=== PATIENT | female | born 1940 | race Caucasian/White ===

== ENCOUNTER 2021-09-15 02:09 | Inpatient (IN) | payer MEDICARE, OTHER ==
[~2021-09-15] VITALS: Ht 160 cm; Wt 66.7 kg
[2021-09-15 02:45] LABS: HEMATOCRIT 37.1 % (31.2-41.9); MEAN CORPUSCULAR HEMOGLOBIN 29.1 uug (24.7-32.8); MEAN CORPUSCULAR VOLUME 85.1 fL (75.5-95.3); PLATELET COUNT (AUTO) 186 K/uL (179-408)
[2021-09-15 02:49] LABS: CARBON DIOXIDE 28 mmol/L (21-32); CHLORIDE 104 mmol/L (98-107); CREATININE 0.7 mg/dL (0.6-1.3); GLUCOSE 98 mg/dL (74-106); POTASSIUM 3.6 mmol/L (3.5-5.1); UREA NITROGEN, BLOOD 17 mg/dL (7-18)
[2021-09-15 03:00] LABS: ALANINE AMINOTRANSFERASE 29 U/L (14-59); ALKALINE PHOSPHATASE 90 U/L (50-136); ASPARTATE AMINOTRANSFERASE 27 U/L (15-37); BILIRUBIN,DIRECT 0.1 mg/dL (0.0-0.2); BILIRUBIN,TOTAL 0.3 mg/dL (0.2-1.0); CREATINE KINASE, TOTAL 398 U/L (26-192); TOTAL PROTEIN, SERUM 7.1 g/dL (6.4-8.2)
[2021-09-15 03:02] LABS: THYROID STIMULATING HORMONE 8.367 mIU/mL (0.358-3.740)
[2021-09-15 03:06] LABS: ACETAMINOPHEN < 2.0 ug/mL (10-30)
[2021-09-15 03:12] LABS: ETHANOL < 3 MG/DL (0-0)
[2021-09-15] MEDS ORDERED: HYDR-501 PO (03:19)
[2021-09-15] MEDS ORDERED: CRAN450T9 PO (03:19)
[2021-09-15] MEDS ORDERED: ACET-2154 PO (03:19)
[2021-09-15] MEDS ORDERED: AMIN30LI27 PO (03:19)
[2021-09-15] MEDS ORDERED: MAGN400O6 PO (03:19)
[2021-09-15] MEDS ORDERED: POLY17PO4 PO (03:19)
[2021-09-15] MEDS ORDERED: NAPR-1009 PO (03:19)
[2021-09-15] MEDS ORDERED: AMLO-212 PO (03:19)
[2021-09-15] MEDS ORDERED: MAG-55 PO (03:19)
[2021-09-15] MEDS ORDERED: BISA10SU61 RC (03:19)
[2021-09-15] MEDS ORDERED: DOCU250C14 PO (03:19)
[2021-09-15] MEDS ORDERED: NA P133E RC (03:19)
[2021-09-15] MEDS ORDERED: SIME120L MC (03:19)
[2021-09-15] MEDS ORDERED: CIPR-263 PO (03:19)
[2021-09-15] MEDS ORDERED: QUET50TA PO (03:19)
[2021-09-15] MEDS ORDERED: MULT-1075 PO (03:19)
[2021-09-15] MEDS ORDERED: LORA0.5T48 PO (03:19)
[2021-09-15] MEDS ORDERED: ESCI20TA PO (03:19)
--- NOTE | 2021-09-15 03:30 | NUR ---
Patient on a 5150 hold for GD and DTO to be medically cleared and admitted to MHU
[2021-09-15 04:03] LABS: *BILIRUBIN,URIN NEGATIVE (NEGATIVE); *BLOOD, URINE NEGATIVE (NEGATIVE); *COLOR,URINE YELLOW (YELLOW); *KETONES,URINE NEGATIVE (NEGATIVE); *UROBILINOGEN,URINE 0.2 E.U./dl (NORMAL); LEUKOCYTE ESTERASE ,URINE 2+ (NEGATIVE); NITRITE, URINE NEGATIVE (NEGATIVE); UGLUCOSE NEGATIVE (NEGATIVE)
[2021-09-15 04:04] LABS: *CLARITY,URINE HAZY (CLEAR)
[2021-09-15 04:15] LABS: RBC,URINE 0-3 /HPF (0-3); WBC,URINE 20-50 /HPF (0-3)
[2021-09-15 04:16] LABS: *AMPHETAMINE, URINE NEGATIVE (NEGATIVE); *CANNABINOID, URINE NEGATIVE (NEGATIVE); *COCCAINE, URINE NEGATIVE (NEGATIVE); *OPIATE, URINE NEGATIVE (NEGATIVE); *PHENCYCLIDINE SCREEN,URINE NEGATIVE (NEGATIVE); BACTERIA,URINE FEW /HPF (NONE SEEN); SQUAMOUS EPITHELIAL CELL,UR MODERATE /HPF (NONE SEEN); YEAST,URINE MANY /HPF (NONE SEEN)
--- NOTE | 2021-09-15 07:19 | NUR ---
Received pt, sleeping on bed easily aroused by minimal stimuli. Patient well behaved at the moment, no untoward signs of behavior observed. Vitals stable. Waiting for MD to medically clear the pt.
[2021-09-15] MEDS ORDERED: CEFTRIAXONE 1 G VIAL IM ONE (07:45)
[2021-09-15] MEDS ORDERED: CEFTRIAXONE 1 G VIAL ONE (07:46)
[2021-09-15] MEDS ORDERED: LIDOCAINE HCL 1% 20 ML VIAL ONE (07:48)
--- NOTE | 2021-09-15 08:11 | NUR ---
Report given to Nurse jozef, pt will be in room 137A MHU.
--- NOTE | 2021-09-15 08:15 | NUR ---
Patient provided food, tolerated well.
--- NOTE | 2021-09-15 08:35 | NUR ---
Patient awake transferred to MHU via stretcher with vitals taken as follows; BP-125/80 MO-70 RR-18 T-97.3 SPO2-98% RA PA-0/10.
--- NOTE | 2021-09-15 08:45 | NUR ---
Report from ER received by Remington Song RN from [facility] .. Admitted via wheel chair, in no sign of any distress, hesitancy answering questions, needed to repeat questions couple of time. Confused, disoriented, she thinks she's in someone else house, year 1911 or 1921 per patient, was able to answer Corbinnestor is the President.Patient was fed in ER prior to coming to MHU. Skin very dry, intact, tenting. Unable to provide more information asked, will refer to previous record from Facility . Does not want to be bothered, wants her overhead light be turned off. Routine admission care .
[2021-09-15 09:00] VITALS: BP 132/72
[2021-09-15] MEDS ORDERED: LORAZEPAM 1 MG TABLET PO PRN (09:15)
[2021-09-15] MEDS ORDERED: TEMAZEPAM 7.5 MG CAPSULE PO PRN (09:15)
[2021-09-15] MEDS ORDERED: MAG HYDROX/AL HYDROX/SIMETH 30 ML LIQUID UDC PO PRN (10:30)
[2021-09-15] MEDS ORDERED: MAGNESIUM HYDROXIDE 30 ML LIQUID UDC PO PRN (10:30)
--- NOTE | 2021-09-15 12:12 | NUR ---
Gps/Health Information Specialist- Was able to get hold of patient's daughter Daja ), claimed she's worried about her mother's situation , verbalized she's being nervous of what is going on, wanting to talk to the Medical Doctor as well as Dr Bueno, informed will notify Doctors and inform her request. Per Daja patient used to have apartment of her own, and had Caregiver parts consultant , helps her with her groceries and Doctors appointment. Awol risk . Per Daughter she believes , patient received Moderna vaccine with booster but not sure exactly w/c date , informed will call SNF to double check the right date received.
[2021-09-15] MEDS: ACETAMINOPHEN 325 MG TABLET PO PRN (14:42)
--- NOTE | 2021-09-15 16:00 | NUR ---
Gps/Knife Sharpener- Assisted with pm shower , patient verbalized headache resolved. Redirectable , ambulates around , encouraged to attend his group tx. Cooperative with staff, noted extremely KETCHIKAN , does not have hearing aid now ,per daughter Daja she does not know what happened to it .
[2021-09-15 16:18] VITALS: BP 122/59
--- NOTE | 2021-09-15 16:31 | NUR ---
DMITRY Initial Discharge Note: Pt currently resides at [address] [place] [address] with a part-time blocker automatic. DMITRY will contact pt's daughter, Daja ([phone]) to gather further information regarding the discharge plan. DMITRY will work with the pt, daughter and MD to ensure a safe and proper discharge plan.
[2021-09-15] MEDS ORDERED: FLEET ENEMA 133 ML BOTTLE RC PRN (16:45)
[2021-09-15] MEDS ORDERED: BISACODYL 10 MG SUPP.RECT RC PRN (16:45)
[2021-09-15] MEDS ORDERED: Medication Not On Formulary EA (Amino Acids/Protein Hydrolys (Pro-Stat Sugar Free Liquid PO SCH (17:00)
[2021-09-15] MEDS: risperiDONE 0.5 MG TABLET PO SCH (17:15)
[2021-09-15] MEDS: CIPROFLOXACIN HCL 250 MG TABLET PO SCH (17:32)
[2021-09-15] MEDS: PROTEIN SUPPLEMENT (PROSTAT) 30 ML LIQUID PO SCH (17:39)
--- NOTE | 2021-09-15 17:58 | NUR ---
Gps/Braille Typist- Stayed in th dinning room during dinner, interacting fairly well with her peers. Patient noted some word finding difficulty when conversing with staff , words does not makes sense , confused, disoriented, reminded she's in the Hospital. Safety reviewed
--- NOTE | 2021-09-15 18:03 | NUR ---
Gps/Rubble Placer- Tries to call [facility]. couple of times, to obtain information about vaccines/immunizations , unable to get through, message kept saying try again at a later time. Called Daja (daughter ) claimed facility has the record.
[2021-09-15 20:00] VITALS: BP 129/54
[2021-09-15] MEDS: DIVALPROEX 250 MG TABLET.DR PO SCH (20:36)
[2021-09-15] MEDS: LORAZEPAM 1 MG TABLET PO PRN (20:37)
--- NOTE | 2021-09-16 00:46 | NUR ---
Tried to call [facility] but voice message, not accepting calls. Double checked number on intranet. Still unable to obtain Vaccination information at this time.
[2021-09-16 07:34] VITALS: BP 160/73
--- NOTE | 2021-09-16 08:38 | NUR ---
Firearms Report: Research Scholar completed and submitted a DOJ firearms report for 5150 for danger to others and grave disability certifications. A copy of report has been placed in patient chart.
[2021-09-16] MEDS: risperiDONE 0.5 MG TABLET PO SCH ×2 (08:55→17:43)
[2021-09-16] MEDS: CIPROFLOXACIN HCL 250 MG TABLET PO SCH ×2 (08:55→17:43)
[2021-09-16] MEDS: DIVALPROEX 250 MG TABLET.DR PO SCH ×2 (08:55→20:12)
[2021-09-16] MEDS: MULTIVIT, IRON, MIN NO. 8, FA TABLET PO SCH (08:57)
[2021-09-16] MEDS: ESCITALOPRAM OXALATE 10 MG TABLET NG SCH (08:57)
[2021-09-16] MEDS: DOCUSATE SODIUM 250 MG CAPSULE PO SCH (08:58)
[2021-09-16] MEDS: AMLODIPINE 5 MG TABLET PO SCH (09:00)
[2021-09-16] MEDS: MIRALAX 17 GM POWD.PACK PO SCH (09:00)
[2021-09-16] MEDS ORDERED: [UNRECOGNIZED DRUG - OTHER] PO SCH (09:00)
[2021-09-16] MEDS: PROTEIN SUPPLEMENT (PROSTAT) 30 ML LIQUID PO SCH ×2 (09:01→17:44)
--- NOTE | 2021-09-16 11:00 | NUR ---
Gps/Church History Teacher- Circuit Manager Lucia was able to get hold of the [facility] , [place] , was able to give us Nurses Station information obtained patient received Moderna vaccine first does on 07/19/2020, second dose on 08/10/2020, booster osborn on 04/19/21 , no records of Pneumonia vaccine , nor Flu vaccine noted.
[2021-09-16] MEDS: LORAZEPAM 1 MG TABLET PO PRN ×2 (15:20→20:12)
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
--- NOTE | 2021-09-16 16:00 | NUR ---
Gps/Pharmacy Director- Kept up in her amy-chair , kept trying to slide from amy-chair, put patient in front of the Nurses Station for close supervision for safety
--- NOTE | 2021-09-16 16:00 | NUR ---
Gps/Research Engineer- Stonecutter Hand Roger, notified of patient's behavior, orders received.
[2021-09-16] MEDS ORDERED: HALOPERIDOL LACTATE 5 MG/1 ML VIAL IM ONE (16:15)
[2021-09-16] MEDS ORDERED: diphenhydrAMINE 50 MG/1 ML VIAL IM ONE (16:15)
[2021-09-16 20:14] VITALS: BP 121/69
[2021-09-17 07:50] VITALS: BP 149/68
[2021-09-17] MEDS: DIVALPROEX 250 MG TABLET.DR PO SCH ×2 (08:11→21:17)
[2021-09-17] MEDS: DOCUSATE SODIUM 250 MG CAPSULE PO SCH (08:12)
[2021-09-17] MEDS: AMLODIPINE 5 MG TABLET PO SCH (08:12)
[2021-09-17] MEDS: ESCITALOPRAM OXALATE 10 MG TABLET NG SCH (08:12)
[2021-09-17] MEDS: MIRALAX 17 GM POWD.PACK PO SCH (08:21)
[2021-09-17] MEDS: CIPROFLOXACIN HCL 250 MG TABLET PO SCH ×2 (08:21→16:32)
[2021-09-17] MEDS: MULTIVIT, IRON, MIN NO. 8, FA TABLET PO SCH (08:21)
[2021-09-17] MEDS: risperiDONE 0.5 MG TABLET PO SCH ×3 (08:21→21:17)
[2021-09-17] MEDS: PROTEIN SUPPLEMENT (PROSTAT) 30 ML LIQUID PO SCH ×2 (09:00→16:46)
--- NOTE | 2021-09-17 10:56 | NUR ---
Gps/Instructor Looping- Kept wandering around , going room ro room, needing constant redirections, pushing doors, AWOL risk , continue to monitor safety, needs. Speech incoherent, confused., [place]
[2021-09-17] MEDS: LORAZEPAM 1 MG TABLET PO PRN ×2 (12:43→21:17)
[2021-09-17 16:05] VITALS: BP 145/75
--- NOTE | 2021-09-17 16:59 | NUR ---
GPS: 14 DAY HOLD 0628 FAXED TO THE [facility] FOR GROUNDS OF DTO AND GD. PT GIVEN A COPY OF THE HOLD.
[2021-09-17 20:00] VITALS: BP 147/70
[2021-09-17] MEDS: NAPROXEN 500 MG TABLET PO PRN (21:17)
--- NOTE | 2021-09-18 05:30 | NUR ---
Patient was found in another patients room at the start of the shift. Calm but confused. Easily redirectable. This public relations writer was unable to engage in any meaningful conversation d/t patient being delusional and paranoid. Safety Stratiges in place. Continuing to reorient and redirect patient as needed. No aggression noted this shift. Patient is medication compliant.
[2021-09-18 07:35] VITALS: BP 146/67
[2021-09-18] MEDS: DIVALPROEX 250 MG TABLET.DR PO SCH ×2 (09:00→20:44)
[2021-09-18] MEDS: ESCITALOPRAM OXALATE 10 MG TABLET NG SCH (09:00)
[2021-09-18] MEDS: MULTIVIT, IRON, MIN NO. 8, FA TABLET PO SCH (09:01)
[2021-09-18] MEDS: risperiDONE 0.5 MG TABLET PO SCH ×3 (09:01→16:26)
[2021-09-18] MEDS: MIRALAX 17 GM POWD.PACK PO SCH (09:02)
[2021-09-18] MEDS: AMLODIPINE 5 MG TABLET PO SCH (09:02)
[2021-09-18] MEDS: PROTEIN SUPPLEMENT (PROSTAT) 30 ML LIQUID PO SCH ×2 (09:03→16:30)
[2021-09-18] MEDS: CIPROFLOXACIN HCL 250 MG TABLET PO SCH ×2 (09:03→16:26)
[2021-09-18] MEDS: DOCUSATE SODIUM 250 MG CAPSULE PO SCH (09:03)
--- NOTE | 2021-09-18 12:02 | NUR ---
Gps/Carrier Blower- Remains figity, kept fixing her bed, no hallucinations noted, noted kept pushing , checking doors doors . Confused, disoriented, incoherent speech , constantly needing redirections .
[2021-09-18 16:06] VITALS: BP 114/58
[2021-09-18 20:02] VITALS: BP 134/64
[2021-09-18] MEDS: LORAZEPAM 1 MG TABLET PO PRN (20:44)
--- NOTE | 2021-09-19 06:24 | NUR ---
Patient is confused and is unable to respond to redirection for longer than a minute. Safety Stratiges are in place. Fluids encouraged for UTI , and patient is medication compliant. Some urinary incontinence noted during the night. Patient slept for 7.00 hours.
[2021-09-19 07:38] VITALS: BP 128/69
[2021-09-19] MEDS: DIVALPROEX 250 MG TABLET.DR PO SCH ×2 (08:35→20:49)
[2021-09-19] MEDS: CIPROFLOXACIN HCL 250 MG TABLET PO SCH ×2 (08:35→17:35)
[2021-09-19] MEDS: DOCUSATE SODIUM 250 MG CAPSULE PO SCH (08:35)
[2021-09-19] MEDS: AMLODIPINE 5 MG TABLET PO SCH (08:36)
[2021-09-19] MEDS: risperiDONE 0.5 MG TABLET PO SCH (08:36)
[2021-09-19] MEDS: ESCITALOPRAM OXALATE 10 MG TABLET NG SCH (08:36)
[2021-09-19] MEDS: MULTIVIT, IRON, MIN NO. 8, FA TABLET PO SCH (08:36)
[2021-09-19] MEDS: MIRALAX 17 GM POWD.PACK PO SCH (08:37)
[2021-09-19] MEDS: PROTEIN SUPPLEMENT (PROSTAT) 30 ML LIQUID PO SCH ×2 (08:38→17:36)
[2021-09-19] MEDS ORDERED: risperiDONE 0.5 MG TABLET PO SCH (09:00)
[2021-09-19] MEDS: LORAZEPAM 1 MG TABLET PO PRN ×2 (12:08→22:55)
[2021-09-19] MEDS: ACETAMINOPHEN 325 MG TABLET PO PRN (12:08)
--- NOTE | 2021-09-19 14:38 | NUR ---
received patient incoherent speech, confused, disoriented, constantly needing to be redirected, tends to wander room to room, Fluids offered for UTI, PRN Ativan given as ordered,will continue close monitoring.
[2021-09-19 16:18] VITALS: BP 114/62
[2021-09-19] MEDS ORDERED: risperiDONE 1 MG TABLET PO SCH (17:00)
[2021-09-19 19:39] VITALS: BP 118/64
[2021-09-20] MEDS: ZOLPIDEM 5 MG TABLET PO PRN ×2 (00:07→23:06)
[2021-09-20 07:30] VITALS: BP 166/80
[2021-09-20] MEDS: MULTIVIT, IRON, MIN NO. 8, FA TABLET PO SCH (08:33)
[2021-09-20] MEDS: DOCUSATE SODIUM 250 MG CAPSULE PO SCH (08:33)
[2021-09-20] MEDS: DIVALPROEX 250 MG TABLET.DR PO SCH ×2 (08:33→20:10)
[2021-09-20] MEDS: MIRALAX 17 GM POWD.PACK PO SCH (08:34)
[2021-09-20] MEDS: AMLODIPINE 5 MG TABLET PO SCH (08:34)
[2021-09-20] MEDS: PROTEIN SUPPLEMENT (PROSTAT) 30 ML LIQUID PO SCH ×2 (08:39→17:00)
[2021-09-20] MEDS: CIPROFLOXACIN HCL 250 MG TABLET PO SCH ×2 (08:40→16:59)
[2021-09-20] MEDS ORDERED: risperiDONE 1 MG TABLET PO SCH (09:00)
[2021-09-20] MEDS ORDERED: FLUCONAZOLE 200 MG TABLET PO ONE (12:00)
[2021-09-20 15:25] VITALS: BP 121/69
[2021-09-20] MEDS: risperiDONE 1 MG TABLET PO SCH ×2 (17:00→20:10)
[2021-09-20 19:47] VITALS: BP 115/64
[2021-09-20] MEDS: LORAZEPAM 1 MG TABLET PO PRN (21:17)
--- NOTE | 2021-09-20 21:20 | NUR ---
Received patient in the hallway. she is noted A/O x 1 (to name only) she is noted pacing the hallway, going into other patient's rooms, she is forgetful and hard to redirect. she is unable to have a meaningful conversation with this narrative writer. impaired insight and judgment is noted as to the reason for her admission to MHU. Ativan 1mg PO PRN was given for anxiety and agitation. V/S are stable. patient in no distress. PO fluid and snacks were provided. Safety and fall precaution are in place. will continue to monitor.
[2021-09-21] MEDS: LEVOTHYROXINE SODIUM 25 MCG TABLET PO SCH (06:52)
[2021-09-21 07:18] LABS: HEMATOCRIT 34.5 % (31.2-41.9); MEAN CORPUSCULAR HEMOGLOBIN 29.5 uug (24.7-32.8); MEAN CORPUSCULAR VOLUME 86.5 fL (75.5-95.3); PLATELET COUNT (AUTO) 148 K/uL (179-408)
[2021-09-21 07:27] LABS: CREATININE 0.8 mg/dL (0.6-1.3); MAGNESIUM 2.1 mg/dL (1.8-2.4); PHOSPHOROUS 4.1 mg/dL (2.5-4.9); POTASSIUM 3.9 mmol/L (3.5-5.1)
[2021-09-21 07:30] VITALS: BP 173/93
[2021-09-21] MEDS: AMLODIPINE 5 MG TABLET PO SCH (09:11)
[2021-09-21] MEDS: DOCUSATE SODIUM 250 MG CAPSULE PO SCH (09:11)
[2021-09-21] MEDS: DIVALPROEX 250 MG TABLET.DR PO SCH ×4 (09:12→18:02)
[2021-09-21] MEDS: CIPROFLOXACIN HCL 250 MG TABLET PO SCH ×2 (09:12→18:04)
[2021-09-21] MEDS: risperiDONE 1 MG TABLET PO SCH ×3 (09:12→20:37)
[2021-09-21] MEDS: MULTIVIT, IRON, MIN NO. 8, FA TABLET PO SCH (09:12)
[2021-09-21] MEDS: MIRALAX 17 GM POWD.PACK PO SCH (09:18)
[2021-09-21 09:36] LABS: NEUTROPHILS % (MANUAL) 0 % (42-75)
[2021-09-21] MEDS: PROTEIN SUPPLEMENT (PROSTAT) 30 ML LIQUID PO SCH ×2 (12:02→18:02)
--- NOTE | 2021-09-21 14:39 | NUR ---
GPS: PT RECEIVED ON BED TODAY. DENIES ANY PAIN OR DISCOMFORT. PT SEEN WANDERING PACING HALLWAY AND VERY CONFUSED, REORIENTED PT TO HER ROOM. REFUSED WEARING DIAPER AND VERY RESISTIVE WITH CARE, PT WALKING AT HALLWAY WITH LOOSE BOWEL MOVEMENT. ASSISTED PT TO THE BATHROOM. PT UNABLE TO MAKE NEEDS KNOWN. STAFF ABLE TO PUT DIAPER AND PANTS ON PT. COMPLIANT WITH MEDS. NO AGITATION NOTED.
[2021-09-21 16:00] VITALS: BP 157/71
[2021-09-21] MEDS: LORAZEPAM 1 MG TABLET PO PRN (18:04)
--- NOTE | 2021-09-21 18:15 | NUR ---
GPS: PT HAD BEEN PACING ALONG THE HALLWAY AND ALWAYS STANDING BY ON THE ENTRANCE DOOR. PT IS ON AWOL RISK. REDIRECTING PT BUT SOMEWHAT DIFFICULT. PT WANDERS ON THE ROOM. RE-ORIENTED PT TO HER ROOM BUT SEEMS TO FORGET IT EASILY. PT FEELS ANXIOUS AND STATING WANTING TO LEAVE THE PLACE, ASKING STAFF TO OPEN THE FRONT DOOR FOR HER. INTRUSIVE WITH STAFF. HAVE FLIGHT OF IDEAS, JUMPING FROM ONE SUBJECT TO ANOTHER. PT WAS GIVEN ATIVAN FOR ANXIETY. NO AGITATION NOTED AT THIS TIME. WILL MONITOR FOR SAFETY.
[2021-09-21 20:00] VITALS: BP 109/85
[2021-09-21] MEDS: ZOLPIDEM 5 MG TABLET PO PRN (22:54)
--- NOTE | 2021-09-22 06:04 | NUR ---
GPS: PT SLEPT THE WHOLE NIGHT FOR 6.30 HOURS. NO AGITATION NOTED.
[2021-09-22] MEDS: LEVOTHYROXINE SODIUM 25 MCG TABLET PO SCH (06:47)
[2021-09-22 07:34] VITALS: BP 124/58
[2021-09-22] MEDS: PROTEIN SUPPLEMENT (PROSTAT) 30 ML LIQUID PO SCH ×2 (09:00→17:04)
[2021-09-22] MEDS: MIRALAX 17 GM POWD.PACK PO SCH (09:00)
[2021-09-22] MEDS: DOCUSATE SODIUM 250 MG CAPSULE PO SCH (10:13)
[2021-09-22] MEDS: CIPROFLOXACIN HCL 250 MG TABLET PO SCH (10:13)
[2021-09-22] MEDS: risperiDONE 1 MG TABLET PO SCH ×3 (10:13→20:34)
[2021-09-22] MEDS: AMLODIPINE 5 MG TABLET PO SCH (10:14)
[2021-09-22] MEDS: DIVALPROEX 250 MG TABLET.DR PO SCH ×3 (10:15→16:55)
[2021-09-22] MEDS: MULTIVIT, IRON, MIN NO. 8, FA TABLET PO SCH (10:18)
--- NOTE | 2021-09-22 11:05 | NUR ---
Gps/Advisor Advocate Angel Co Founder- Found patient on the floor, in front of the Social Workers's office , lying on her left side. Patient does not know what happened, confused, disoriented, , incoherent speech. Denies any pain, no discomfort at this time. B/P 126/54- HR 78, resp. 18, 02 sat 95% . Patient was assisted to amy-chair, kept up by the Nurses Station , monitored closely for safety .
--- NOTE | 2021-09-22 11:32 | NUR ---
Gps/Order Administrator- Cielo Jnoes ENTERPRISE RESOURCE PLANNER was called, to informed patient had a fall this am. , texted, left message.
--- NOTE | 2021-09-22 13:36 | NUR ---
Gps/Full Decator Operator- Apparently per monitor , as reviewed patient dint have any falls this am. Patient tends to sit on the floor, leans on the monk. kept patient infront of the Nurses station during lunch
[2021-09-22 16:52] VITALS: BP 145/76
[2021-09-22 20:00] VITALS: BP 149/75
[2021-09-22] MEDS: LORAZEPAM 1 MG TABLET PO PRN (20:33)
[2021-09-22] MEDS: NAPROXEN 500 MG TABLET PO PRN (21:18)
[2021-09-22] MEDS: ZOLPIDEM 5 MG TABLET PO PRN (21:48)
--- NOTE | 2021-09-23 04:08 | NUR ---
Received patient in the Caitlyn chair at the start of the shift. Agitated and confused. The patient was also anxious. This telegraphic typewriter mechanic reoriented and reassured the patient many times, gave patient medication for anxiety with some snack and helped her with a shower. Ambulated patient up and down the maldonado a few times, using a front wheel walker, then the patient went to bed. Bed alarm is on and frequent rounding done to ensure safety. No changes noted.
[2021-09-23] MEDS: LEVOTHYROXINE SODIUM 25 MCG TABLET PO SCH (06:09)
[2021-09-23 07:35] VITALS: BP 131/76
[2021-09-23] MEDS: DOCUSATE SODIUM 250 MG CAPSULE PO SCH (08:26)
[2021-09-23] MEDS: AMLODIPINE 5 MG TABLET PO SCH (08:26)
[2021-09-23] MEDS: DIVALPROEX 250 MG TABLET.DR PO SCH ×3 (08:26→16:56)
[2021-09-23] MEDS: MULTIVIT, IRON, MIN NO. 8, FA TABLET PO SCH (08:26)
[2021-09-23] MEDS: risperiDONE 1 MG TABLET PO SCH ×3 (08:28→21:07)
[2021-09-23] MEDS: MIRALAX 17 GM POWD.PACK PO SCH (08:28)
[2021-09-23] MEDS: PROTEIN SUPPLEMENT (PROSTAT) 30 ML LIQUID PO SCH ×2 (08:34→16:56)
[2021-09-23] MEDS: ENSURE ENLIVE (VAN) 240 ML LIQUID PO SCH (08:34)
--- NOTE | 2021-09-23 13:00 | NUR ---
Gps/Pathology Laboratory Aide-Bed alarm on when pt. in bed, noted gait slightly unsteady, tends to lean on the monk when walking , Potential for fall. Remains confused, speech incoherent.No aggressive behavior needed assist in toileting , diaper on . Complaint with her routine meds. Fluid intake adequate
[2021-09-23 16:00] VITALS: BP 154/73
[2021-09-23] MEDS: LORAZEPAM 1 MG TABLET PO PRN (20:22)
--- NOTE | 2021-09-23 20:25 | NUR ---
RECEIVED PATIENT IN THE HALLWAY SITTING IN A SIERRA CHAIR FOR SAFETY. SHE IS NOTED A/O X 1. HYPERVERBAL, RESTLESS, AND ANXIOUS. PATIENT IS UNABLE TO HAVE A MEANINGFUL CONVERSATION WITH THIS CALL CENTER DISPATCHER. SHE NEEDS CONSTANT REDIRECTION AND REALITY ORIENTATION. NO AGGRESSIVE OR COMBATIVE BX NOTED AT THIS TIME. ATIVAN 1MG PO PRN WAS GIVEN. FOR ANXIETY. V/S STABLE. PT IN NO DISTRESS. SHE WAS GIVEN PO FLUIDS AND SNACKS. SAFETY AND FALL PRECAUTION ARE IN PLACE. SHE IS REASSURED FOR HER SAFETY. WILL CONTINUE TO MONITOR Q15 MIN CHECKS PER UNIT PROTOCOL.
[2021-09-23] MEDS: ZOLPIDEM 5 MG TABLET PO PRN (22:31)
[2021-09-24] MEDS: LEVOTHYROXINE SODIUM 25 MCG TABLET PO SCH (06:24)
[2021-09-24 08:28] VITALS: BP 147/72
[2021-09-24] MEDS: MULTIVIT, IRON, MIN NO. 8, FA TABLET PO SCH (09:05)
[2021-09-24] MEDS: DIVALPROEX 250 MG TABLET.DR PO SCH ×3 (09:05→16:45)
[2021-09-24] MEDS: DOCUSATE SODIUM 250 MG CAPSULE PO SCH (09:05)
[2021-09-24] MEDS: risperiDONE 1 MG TABLET PO SCH ×3 (09:06→20:13)
[2021-09-24] MEDS: AMLODIPINE 5 MG TABLET PO SCH (09:08)
[2021-09-24] MEDS: MIRALAX 17 GM POWD.PACK PO SCH (09:08)
[2021-09-24] MEDS: PROTEIN SUPPLEMENT (PROSTAT) 30 ML LIQUID PO SCH ×2 (09:09→16:45)
[2021-09-24] MEDS: ENSURE ENLIVE (VAN) 240 ML LIQUID PO SCH (09:09)
--- NOTE | 2021-09-24 11:50 | NUR ---
GPS: Nursing Notes: Thought Disorder: Patient is awake and responding to her name, disoriented, confused, disorganized, impaired judgment, poor insight, believes that his dad is here, believes that something happened to him, redirected and reoriented during shift, unable to formulate a viable plan for self care, unkempt appearance, unkempt appearance, AWOL risk, episodes of asking to go home, unsteady gait, fall risk, disorganized, resistant with nursing care, continue with treatment plan.
[2021-09-24] MEDS: ACETAMINOPHEN 325 MG TABLET PO PRN (12:47)
[2021-09-24] MEDS: NAPROXEN 500 MG TABLET PO PRN (16:45)
[2021-09-24 17:59] VITALS: BP 134/71
[2021-09-24 20:00] VITALS: BP 141/73
--- NOTE | 2021-09-24 20:00 | NUR ---
RECEIVED PATIENT IN THE HALLWAY SITTING IN A SIERRA CHAIR FOR SAFETY. SHE IS NOTED A/O X 1 WITH NO CHANGES IN LOC. SHE IS HYPERVERBAL. SHE IS UNABLE TO HAVE A MEANINGFUL CONVERSATION WITH THIS SENIOR QUALITY ASSURANCE ANALYST. SHE NEEDS CONSTANT REDIRECTION AND REALITY ORIENTATION. SHE NEEDS ASSISTANCE WITH ADLS. NO AGGRESSIVE OR COMBATIVE BX NOTED AT THIS TIME. V/S STABLE. PT IN NO DISTRESS. SHE WAS GIVEN PO FLUIDS AND SNACKS. SAFETY AND FALL PRECAUTION ARE IN PLACE. SHE IS REASSURED FOR HER SAFETY. WILL CONTINUE TO MONITOR Q15 MIN CHECKS PER UNIT PROTOCOL.
[2021-09-24] MEDS: ZOLPIDEM 5 MG TABLET PO PRN (21:21)
[2021-09-25] MEDS: LEVOTHYROXINE SODIUM 25 MCG TABLET PO SCH (06:30)
--- NOTE | 2021-09-25 06:52 | NUR ---
PATIENT SLEPT FOR APPROX 7.30 HRS THROUGH THE NIGHT. SHE WAS TAKEN TO THE TOILET WHERE SHE WAS ABLE TO VOID. NO AGGRESSIVE OR COMBATIVE BX WAS NOTED. SHE CONTINUE COMPLIANT WITH MEDICATION REGIMENT DIET AND CARE.
--- NOTE | 2021-09-25 07:15 | NUR ---
TAN ROOM SUPERVISOR ATTEMPTED TO DRAW BLOOD ON HER RIGHT POSTERIOR HAND; HOWEVER, SHE WAS UNABLE TO GET ANY BLOOD. PATIENT THEN GOT IRRITATED AND AGITATED. TAN ROOM SUPERVISOR WAS ADVICE TO COME BACK LATER AND TRY AGAIN. WILL CONTINUE TO MONITOR.
[2021-09-25] MEDS: AMLODIPINE 5 MG TABLET PO SCH ×2 (08:32→15:37)
[2021-09-25] MEDS: DOCUSATE SODIUM 250 MG CAPSULE PO SCH (08:32)
[2021-09-25] MEDS: MIRALAX 17 GM POWD.PACK PO SCH (08:32)
[2021-09-25] MEDS: risperiDONE 1 MG TABLET PO SCH ×3 (08:32→20:16)
[2021-09-25] MEDS: MULTIVIT, IRON, MIN NO. 8, FA TABLET PO SCH (08:32)
[2021-09-25] MEDS: DIVALPROEX 250 MG TABLET.DR PO SCH ×3 (08:32→16:50)
[2021-09-25] MEDS: PROTEIN SUPPLEMENT (PROSTAT) 30 ML LIQUID PO SCH ×2 (08:33→16:51)
[2021-09-25] MEDS: ENSURE ENLIVE (VAN) 240 ML LIQUID PO SCH (08:33)
[2021-09-25] MEDS: NAPROXEN 500 MG TABLET PO PRN (09:43)
--- NOTE | 2021-09-25 10:41 | NUR ---
GPS: Nursing Notes: Thought Disorder: Patient is awake and responding to her name, cooperative with nursing care, compliant with her medications, impaired judgment, confused, disoriented, disorganized, poor insight, hyperverbal, talking incoherently, unable to formulate a viable plan for self care, continue to monitor for safety, continue with treatment plan.
[2021-09-25] MEDS: ACETAMINOPHEN 325 MG TABLET PO PRN (13:10)
--- NOTE | 2021-09-25 14:36 | NUR ---
GPS: Nursing Notes: Hep. C Lab. Result: Staff informed Cielo Jones NP of abnormal hep. C lab. result from 09/21/21, no further orders were given, continue to monitor for safety, continue with treatment plan.
[2021-09-25] MEDS: LORAZEPAM 1 MG TABLET PO PRN (15:38)
[2021-09-25 16:04] VITALS: BP 160/73
[2021-09-25 20:00] VITALS: BP 151/67
[2021-09-25] MEDS: ZOLPIDEM 5 MG TABLET PO PRN (21:48)
--- NOTE | 2021-09-26 01:25 | NUR ---
RECEIVED PATIENT IN THE HALLWAY SITTING IN A SIERRA CHAIR FOR SAFETY. SHE IS NOTED A/O X 1 WITH NO CHANGES IN LOC. SHE IS CALM AND PLEASANT UPON APPROACHED. PT IS A POOR HISTORIAN, SHE NEEDS ASSISTANCE WITH ADLS. V/S STABLE. PT IN NO DISTRESS. SHE WAS GIVEN PO FLUIDS AND SNACKS. SAFETY AND FALL PRECAUTION ARE IN PLACE. SHE IS REASSURED FOR HER SAFETY. WILL CONTINUE TO MONITOR Q15 MIN CHECKS PER UNIT PROTOCOL.
[2021-09-26] MEDS: LEVOTHYROXINE SODIUM 25 MCG TABLET PO SCH (06:35)
[2021-09-26] MEDS: MIRALAX 17 GM POWD.PACK PO SCH (09:39)
[2021-09-26] MEDS: AMLODIPINE 5 MG TABLET PO SCH (09:39)
[2021-09-26] MEDS: NAPROXEN 500 MG TABLET PO PRN ×2 (09:39→17:40)
[2021-09-26] MEDS: DOCUSATE SODIUM 250 MG CAPSULE PO SCH (09:39)
[2021-09-26] MEDS: MULTIVIT, IRON, MIN NO. 8, FA TABLET PO SCH (09:39)
[2021-09-26] MEDS: DIVALPROEX 250 MG TABLET.DR PO SCH ×3 (09:39→17:40)
[2021-09-26] MEDS: risperiDONE 1 MG TABLET PO SCH ×3 (09:39→21:09)
[2021-09-26] MEDS: PROTEIN SUPPLEMENT (PROSTAT) 30 ML LIQUID PO SCH ×2 (09:40→17:40)
[2021-09-26] MEDS: ENSURE ENLIVE (VAN) 240 ML LIQUID PO SCH (09:40)
--- NOTE | 2021-09-26 10:57 | NUR ---
GPS: Nursing Notes: Thought Disorder: Patient is awake and responding to her name, hyperverbal at times, disoriented, disorganized, impaired judgment, episodes of talking incoherently, gets easily anxious and disorganized when redirected, unable to formulate a viable plan for self care, present in therapeutic groups, but minimal participation, unkempt appearance, no episodes fo violent outburst, compliant with nursing care, continue to monitor for safety, continue with treatment plan.
[2021-09-26] MEDS: ACETAMINOPHEN 325 MG TABLET PO PRN (12:37)
[2021-09-26 16:02] VITALS: BP 130/69
[2021-09-26 22:28] VITALS: BP 158/77
[2021-09-27] MEDS: LORAZEPAM 1 MG TABLET PO PRN (04:02)
[2021-09-27] MEDS: LEVOTHYROXINE SODIUM 25 MCG TABLET PO SCH (06:19)
[2021-09-27 08:02] VITALS: BP 155/92
[2021-09-27] MEDS: NAPROXEN 500 MG TABLET PO PRN ×2 (09:01→18:03)
[2021-09-27] MEDS: MULTIVIT, IRON, MIN NO. 8, FA TABLET PO SCH (09:01)
[2021-09-27] MEDS: risperiDONE 1 MG TABLET PO SCH ×2 (09:01→20:33)
[2021-09-27] MEDS: MIRALAX 17 GM POWD.PACK PO SCH (09:01)
[2021-09-27] MEDS: DOCUSATE SODIUM 250 MG CAPSULE PO SCH (09:01)
[2021-09-27] MEDS: DIVALPROEX 250 MG TABLET.DR PO SCH ×3 (09:01→18:03)
[2021-09-27] MEDS: AMLODIPINE 5 MG TABLET PO SCH (09:02)
[2021-09-27] MEDS: PROTEIN SUPPLEMENT (PROSTAT) 30 ML LIQUID PO SCH ×2 (09:02→18:04)
[2021-09-27] MEDS: ENSURE ENLIVE (VAN) 240 ML LIQUID PO SCH (09:06)
--- NOTE | 2021-09-27 10:35 | NUR ---
GPS: Nursing Notes: Thought Disorder: Patient is awake and responding to her name, cooperative with nursing care, disorganized, disoriented, impaired judgment, grabbing slides of orange and rubbing them on her face and arms, believes that she was putting lotion on her body, showered, redirected and reoriented during shift, unable to formulate a viable plan for self care, continue to monitor for safety, continue with treatment plan.
[2021-09-27] MEDS: ACETAMINOPHEN 325 MG TABLET PO PRN (13:16)
[2021-09-27 16:02] VITALS: BP 136/79
[2021-09-27 19:52] VITALS: BP 144/77
[2021-09-28] MEDS: LEVOTHYROXINE SODIUM 25 MCG TABLET PO SCH (06:03)
[2021-09-28 07:52] VITALS: BP 150/81
[2021-09-28] MEDS: AMLODIPINE 5 MG TABLET PO SCH (08:28)
[2021-09-28] MEDS: MULTIVIT, IRON, MIN NO. 8, FA TABLET PO SCH (08:28)
[2021-09-28] MEDS: DIVALPROEX 250 MG TABLET.DR PO SCH ×3 (08:28→17:14)
[2021-09-28] MEDS: DOCUSATE SODIUM 250 MG CAPSULE PO SCH (08:28)
[2021-09-28] MEDS: risperiDONE 1 MG TABLET PO SCH ×2 (08:28→20:30)
[2021-09-28] MEDS: ENSURE ENLIVE (VAN) 240 ML LIQUID PO SCH (08:29)
[2021-09-28] MEDS: MIRALAX 17 GM POWD.PACK PO SCH (08:29)
[2021-09-28] MEDS: PROTEIN SUPPLEMENT (PROSTAT) 30 ML LIQUID PO SCH ×2 (09:03→17:18)
--- NOTE | 2021-09-28 15:07 | NUR ---
Received patient awake in the hallway. A/O X 1 - 2 to person. Pt. is forgetful, confused, disoriented, cooperative with care, and compliant with medications. Pt. ambulates with assistance, unsteady gait. Denies SI/HI AH/VH, SOB, pain or any discomfort. Pt. is continent of bladder and bowel. Emotional support provided. Fall and safety precautions implemented.
[2021-09-28 15:49] VITALS: BP 149/68
[2021-09-28 20:00] VITALS: BP 125/81
[2021-09-28] MEDS: MELATONIN 3 MG TABLET PO SCH (20:31)
--- NOTE | 2021-09-29 05:51 | NUR ---
GPS:REMAIN CALM AND COOPERATIVE. PATIENT SLEPT FOR APPROX 7 HRS THROUGH THE NIGHT. PATIENT WAS TAKEN TO THE TOILET WHERE SHE WAS ABLE TO VOID. NO AGGRESSIVE OR COMBATIVE BEHAVIOR NOTED. CONTINUE COMPLIANT WITH MEDICATION REGIMENT DIET AND CARE. NO C/O PAIN OR DISCOMFORT AT THIS TIME.
[2021-09-29] MEDS: LEVOTHYROXINE SODIUM 25 MCG TABLET PO SCH (06:06)
[2021-09-29 07:48] VITALS: BP 142/63
[2021-09-29] MEDS: DIVALPROEX 250 MG TABLET.DR PO SCH ×3 (09:08→16:34)
[2021-09-29] MEDS: risperiDONE 1 MG TABLET PO SCH ×2 (09:08→20:19)
[2021-09-29] MEDS: MULTIVIT, IRON, MIN NO. 8, FA TABLET PO SCH (09:08)
[2021-09-29] MEDS: DOCUSATE SODIUM 250 MG CAPSULE PO SCH (09:09)
[2021-09-29] MEDS: MIRALAX 17 GM POWD.PACK PO SCH (09:09)
[2021-09-29] MEDS: ENSURE ENLIVE (VAN) 240 ML LIQUID PO SCH (09:09)
[2021-09-29] MEDS: PROTEIN SUPPLEMENT (PROSTAT) 30 ML LIQUID PO SCH ×2 (09:10→16:35)
[2021-09-29] MEDS: AMLODIPINE 5 MG TABLET PO SCH (09:10)
--- NOTE | 2021-09-29 12:21 | NUR ---
Gps/Straw Hat Plunger Operator- Remains up in her amy-chair for her safety. Hallucinating seeing crocodile on the floor, constantly talking speech confused and incoherent. Poor safety awareness.
--- NOTE | 2021-09-29 15:18 | NUR ---
DMITRY Family Contact: SW spoke with pt's daughter, Daja ([phone]) who agreed that pt should return to [facility]. Daja appeared emotional over the phone and explained how difficult this process is for her as she cannot help her mother alone. Daja was very understanding and explained her pt's past behaviors. Daja stated she is very happy with the pt's MD, Dr. Bueno and she is aware her mother is in great care. Daja wanted to ensure pt will be safe at [facility] and SW confirmed with Dr. Bueno that pt will be safe in a secure facility and will be safe. Daja is aware pt is discharging to [facility] in [place] and she is agreeable with the discharge plan.
[2021-09-29 16:27] VITALS: BP 149/53
[2021-09-29 20:00] VITALS: BP 115/68
[2021-09-29] MEDS: MELATONIN 3 MG TABLET PO SCH (20:19)
[2021-09-30] MEDS: LEVOTHYROXINE SODIUM 25 MCG TABLET PO SCH (06:13)
[2021-09-30 07:44] VITALS: BP 124/79
[2021-09-30 08:24] VITALS: BP 124/79
[2021-09-30] MEDS: risperiDONE 1 MG TABLET PO SCH (08:24)
[2021-09-30] MEDS: DOCUSATE SODIUM 250 MG CAPSULE PO SCH (08:24)
[2021-09-30] MEDS: DIVALPROEX 250 MG TABLET.DR PO SCH (08:24)
[2021-09-30] MEDS: MULTIVIT, IRON, MIN NO. 8, FA TABLET PO SCH (08:24)
[2021-09-30] MEDS: AMLODIPINE 5 MG TABLET PO SCH (08:24)
[2021-09-30] MEDS: PROTEIN SUPPLEMENT (PROSTAT) 30 ML LIQUID PO SCH (08:25)
[2021-09-30] MEDS: MIRALAX 17 GM POWD.PACK PO SCH (08:37)
[2021-09-30] MEDS: ENSURE ENLIVE (VAN) 240 ML LIQUID PO SCH (08:37)
--- NOTE | 2021-09-30 09:06 | NUR ---
DMITRY Discharge Note: Pt will be discharged to [place] [facility] [id number] ([phone]) via Ambulance transportation at 11AM. DMITRY spoke with admin coordinator, Fanta ([phone]) at the facility who states they are ready to accept the patient today. Pt is aware and agreeable with discharge plans. DMITRY spoke with pts daughter, Daja ([phone]) who is aware and agreeable with the discharge plan. Pt is alert and oriented x1(name), is unable to plan for self-care at this time; however, is willing to accept care at SNF. Pt denies any suicidal or homicidal ideation. Pt will follow-up at the facility with Psychiatrist, Dr. Bueno and Swine Nutritionist, Dr. Lara. Pt presents with calm mood and congruent affect. PHARMACY: [facility] ([phone]) [id number] [facility] [id number].
--- NOTE | 2021-09-30 10:15 | NUR ---
Gps/Radiologist Physician-Called Abner Diaz. report was given to Nursing Office Specialist Ladan. Informed pick up and delivery driver time arranged at 1100. All belongings/valuables was given back to patient. Daughter Daja was aware of her discharge plan today, patient was also informed.
--- NOTE | 2021-09-30 11:30 | NUR ---
Gps/Supervisor Of Guidance And Testing- Toileted, voided , 2 staff assisting was anxious, difficulty following directions. Applied diaper for transportation to [facility]
[2021-09-30] MEDS: LORAZEPAM 1 MG TABLET PO PRN (11:49)
--- NOTE | 2021-09-30 12:41 | NUR ---
Gps/Bottom Steep Tender- Discharged to [facility]. via ambulance, in no sign of any distress, , denies any discomfort, no complaints noted . No belongings , but has 3 bangle bracelets- plastics and metal.
== END 2021-09-30 12:45 | DRG 885 ==
LOC: ER 02:23 → GPS 08:09
PROVIDERS: ADMIT Psychiatry & Neurology Psychiatry; ATTEND Internal Medicine
DX: F29 Unspecified psychosis not due to a substance or known physiological condition (principal); D68.59 Other primary thrombophilia; F03.91 Unspecified dementia, unspecified severity, with behavioral disturbance; N39.0 Urinary tract infection, site not specified; E03.9 Hypothyroidism, unspecified; E78.5 Hyperlipidemia, unspecified; I10 Essential (primary) hypertension; G89.4 Chronic pain syndrome; F31.9 Bipolar disorder, unspecified; F20.9 Schizophrenia, unspecified; F39 Unspecified mood [affective] disorder; Z20.822 Contact with and (suspected) exposure to COVID-19; M19.90 Unspecified osteoarthritis, unspecified site; Z74.09 Other reduced mobility; B96.89 Other specified bacterial agents as the cause of diseases classified elsewhere
CPT/HCPCS: 36415; 70030-TC; 80164; 83735; 84100; 84443; 85025; 86803; 87086; 93005; 97161; A4663; G0480; J0696; J1200; J1630; J3490